=== PATIENT | male | born 1940 | race Caucasian/White ===

== ENCOUNTER 2020-01-14 07:55 | Day surgery (SDC) | payer MEDICARE ==
[2020-01-11 15:20] VITALS: BMI 32.1
[~2020-01-14 07:55] MED LIST: LACTATED RINGERS 1,000 ML IV SCH; LIDOCAINE 1% (10MG/ML) FOR IV START INTRADERMA PRN
[2020-01-14 08:28] VITALS: RESP 16; TEMP 98.6
[2020-01-14] MEDS ORDERED: LIDOCAINE 1% INJ 10MG/ML (20 ML MDV) ONE (09:05)
[2020-01-14] MEDS ORDERED: PROPOFOL 10 MG/ML 20 ML VIAL IV ONE (09:05)
--- NOTE | 2020-01-14 09:29 | P.PCN ---
Date of Procedure: 01/14/20 Procedure(s) Performed: BRIEF HISTORY: Patient is a 79-year-old pleasant white male scheduled for an elective colonoscopy as a part of evaluation of prior history of colon polyps. His last colonoscopy was 5 years ago. PROCEDURE PERFORMED: Colonoscopy with snare polypectomy. PREOPERATIVE DIAGNOSIS: History of colon polyps. IV sedation per Anesthesia. PROCEDURE: After informed consent was obtained, the patient, was brought into the endoscopy unit. IV sedation was administered by Anesthesia under continuous monitoring. Digital rectal examination was normal. Initially the Olympus CF-160 flexible video colonoscope was then inserted in the rectum, gradually advanced into the cecum without any difficulty. Careful examination was performed as the scope was gradually being withdrawn. Ileocecal valve was visualized and appeared normal. Prep was fair.. Mucosa of the cecum, ascending colon, transverse colon, appeared normal. In the hepatic flexure there was a 5 mm sessile polyp removed by snare polypectomy. Scattered left-sided diverticulosis seen. Rest of the descending colon, sigmoid colon, and rectum appeared normal. Retroflexion was performed in the rectum and monitor hemorrhoids were seen. The patient tolerated the procedure well. IMPRESSION: 5-6 mm hepatic flexure polyp status post polypectomy Scattered left-sided diverticula Small internal hemorrhoids RECOMMENDATIONS: Findings of this examination were discussed with the patient as well as his family. He was advised to follow with the biopsy results. He will continue with a high-fiber diet and take fiber supplements a regular basis..
[2020-01-14 09:51] VITALS: BP 149/74; PULSE 76
== END 2020-01-14 10:08 | disposition home or self-care (01) ==
LOC: ORWHC2ENDO 07:55
PROVIDERS: ATTEND Internal Medicine Gastroenterology
DX: Z12.11 Encounter for screening for malignant neoplasm of colon (principal); D12.3 Benign neoplasm of transverse colon; K57.30 Diverticulosis of large intestine without perforation or abscess without bleeding; K64.8 Other hemorrhoids; I25.10 Atherosclerotic heart disease of native coronary artery without angina pectoris; I10 Essential (primary) hypertension; E78.5 Hyperlipidemia, unspecified; I48.91 Unspecified atrial fibrillation; I49.3 Ventricular premature depolarization; N19 Unspecified kidney failure; M19.90 Unspecified osteoarthritis, unspecified site; H40.9 Unspecified glaucoma; K59.00 Constipation, unspecified; Z86.010 Personal history of colon polyps; Z79.899 Other long term (current) drug therapy; Z79.82 Long term (current) use of aspirin; Z79.891 Long term (current) use of opiate analgesic; Z97.2 Presence of dental prosthetic device (complete) (partial); Z99.2 Dependence on renal dialysis
CPT/HCPCS: 88305; 45385; J2001; J2704

== ENCOUNTER 2020-10-11 18:01 | Inpatient (IN) | payer MEDICARE ==
[2020-10-11] MEDS ORDERED: SODIUM CHLORIDE 0.9% 1,000 ML IV STA (18:12)
--- NOTE | 2020-10-11 18:18 | ED ---
General Adult HPI - General Chief complaint: Weakness Stated complaint: weakness Time Seen by Provider: 10/11/20 18:02 Source: patient, EMS, RN notes reviewed Mode of arrival: EMS Limitations: no limitations - History of Present Illness Initial comments: Patient is a pleasant 79-year-old male presenting to the emergency department with some generalized weakness. Onset of symptoms was a past 2 weeks or so. Patient has had several near falls. No isolated area of weakness. There was some question as far as possible confusion but patient states he does not feel confused. No head injury. Patient never had a full fall. No fevers. No chest pain or dyspnea. Patient does admit to having some epigastric discomfort. - Related Data Home Medications Medication Instructions Recorded Confirmed Aspirin EC [Ecotrin] 81 mg PO DAILY 05/01/15 10/11/20 Pantoprazole Sodium [Protonix] 40 mg PO BID 05/01/15 10/11/20 Cyclobenzaprine [Flexeril] 5 mg PO TID PRN 01/11/20 10/11/20 Montelukast [Singulair] 10 mg PO DAILY 01/11/20 10/11/20 Atorvastatin [Lipitor] 20 mg PO DAILY 10/11/20 10/11/20 Calcium Acetate 667 mg PO DAILY 10/11/20 10/11/20 Metoprolol Tartrate [Lopressor] 25 mg PO DAILY 10/11/20 10/11/20 Timolol 0.25% Ophth Soln [Timoptic 1 drop LEFT EYE DAILY 10/11/20 10/11/20 0.25% Ophth Soln] oxyCODONE HCL/ACETAMINOPHEN 1 tab PO TID PRN 10/11/20 10/11/20 [Percocet 7.5-325 mg] traZODone HCL 100 - 200 mg PO HS PRN 10/11/20 10/11/20 Allergies Allergy/AdvReac Type Severity Reaction Status Date / Time No Known Allergies Allergy Verified 01/14/20 08:23 Review of Systems ROS Statement: Those systems with pertinent positive or pertinent negative responses have been documented in the HPI. ROS Other: All systems not noted in ROS Statement are negative. Constitutional: Denies: fever Eyes: Denies: eye pain ENT: Denies: ear pain Respiratory: Denies: cough Cardiovascular: Denies: chest pain Endocrine: Denies: fatigue Gastrointestinal: Reports: as per HPI, abdominal pain. Denies: nausea, vomiting Genitourinary: Denies: dysuria Musculoskeletal: Denies: back pain Skin: Denies: rash Neurological: Reports: as per HPI. Denies: headache Past Medical History Past Medical History: Atrial Fibrillation, Eye Disorder, GERD/Reflux, Hyperlipidemia, Hypertension, Myocardial Infarction (IN), Osteoarthritis (OA), Renal Disease, Vascular Disorder Additional Past Medical History / Comment(s): Vtach with cardioversion, PVCs, paroxysmal AFib, pt states he was told by his physician that he had a mild IN 03/01/16, NEUROPATHY bilateral feet, MRSA with sepsis, CONSTIPATION, L eye GLAUCOMA, BACK PAIN, Chronic renal failure with AV fistula L arm-PT ON HEMO DIALYSIS FRIDAY ,FRIDAY & FRIDAY WITH SHUNT IN LEFT ARM, DJD. Last Myocardial Infarction Date:: 03/01/16 History of Any Multi-Drug Resistant Organisms: MRSA Date of last positivie culture/infection: 02/18/12 per past medical record/patient MDRO Source:: unknown Past Surgical History: Coronary Bypass/CABG, Heart Catheterization, Hernia Repair, Orthopedic Surgery Additional Past Surgical History / Comment(s): 2003 - vessel CABG, L ING HERNIA, AORTIC ANEURYSM repair, colonoscopy, benign polypectomy, cataract removal with lens implants bilaterally, L arm AV fistula. Past Anesthesia/Blood Transfusion Reactions: No Reported Reaction Past Psychological History: No Psychological Hx Reported Smoking Status: Current every day smoker - Past Family History Mother Family Medical History: No Reported History Additional Family Medical History / Comment(s): Mother lived to be 99yrs old. Father Family Medical History: Cancer Additional Family Medical History / Comment(s): OF COLON CANCER. General Exam Limitations: no limitations General appearance: alert, in no apparent distress Head exam: Present: atraumatic, normocephalic Eye exam: Present: normal appearance, PERRL, EOMI. Absent: nystagmus ENT exam: Present: normal oropharynx Neck exam: Present: normal inspection Respiratory exam: Present: normal lung sounds bilaterally Cardiovascular Exam: Present: regular rate, normal rhythm GI/Abdominal exam: Present: soft. Absent: tenderness Extremities exam: Present: normal inspection Neurological exam: Present: alert, oriented X3, CN II-XII intact Expanded Neurological exam: Present: protecting the airway Patient oriented to: Present: person, place, time Speech: Present: fluid speech Cranial nerves: EOM's Intact: Normal Sensory exam: Upper Extremity Light Touch: Normal, Lower Extremity Light Touch: Normal Motor strength exam: RUE: 5, LUE: 5, RLE: 3, LLE: 3 Eye Response: (4) open spontaneously Motor Response: (6) obeys commands Verbal Response: (5) oriented Psychiatric exam: Present: normal affect, normal mood Skin exam: Present: normal color Course Vital Signs 10/11/20 10/11/20 18:13 18:58 Temperature 100.0 F H Pulse Rate 62 71 Respiratory 18 18 Rate Blood Pressure 135/75 107/89 O2 Sat by Pulse 97 Oximetry EKG Findings - EKG Comments: EKG Findings:: A. fib with rate of 92. QRS 138. QT 400. QTc 494. Left axis. Right bundle branch block. Inferior Q waves. PVC present. No acute ST change. Medical Decision Making - Medical Decision Making Patient reevaluated and updated. Case was discussed with practitioner Dariana emerson covering for Dr. Man, who will admit covering for Dr. Gordon. - Lab Data Result diagrams: 10/11/20 18:24 10/11/20 18:24 Lab Results 10/11/20 10/11/20 10/11/20 Range/Units 18:24 18:24 18:24 WBC 11.3 H (3.8-10.6) k/uL RBC 3.72 L (4.30-5.90) m/uL Hgb 12.3 L (13.0-17.5) gm/dL Hct 36.9 L (39.0-53.0) % MCV 99.1 (80.0-100.0) fL MCH 32.9 (25.0-35.0) pg MCHC 33.2 (31.0-37.0) g/dL RDW 12.9 (11.5-15.5) % Plt Count 159 (150-450) k/uL MPV 8.6 Neutrophils % 90 % Lymphocytes % 3 % Monocytes % 4 % Eosinophils % 2 % Basophils % 1 % Neutrophils # 10.1 H (1.3-7.7) k/uL Lymphocytes # 0.4 L (1.0-4.8) k/uL Monocytes # 0.4 (0-1.0) k/uL Eosinophils # 0.2 (0-0.7) k/uL Basophils # 0.1 (0-0.2) k/uL PT 13.8 H (9.0-12.0) sec INR 1.4 H (<1.2) APTT 20.7 L (22.0-30.0) sec Sodium 132 L (137-145) mmol/L Potassium 3.8 (3.5-5.1) mmol/L Chloride 94 L (98-107) mmol/L Carbon Dioxide 29 (22-30) mmol/L Anion Gap 9 mmol/L BUN 42 H (9-20) mg/dL Creatinine 3.82 H (0.66-1.25) mg/dL Est GFR (CKD-EPI)AfAm 16 (>60 ml/min/1.73 sqM) Est GFR (CKD-EPI)NonAf 14 (>60 ml/min/1.73 sqM) Glucose 145 H (74-99) mg/dL Plasma Lactic Acid Kevin (0.7-2.0) mmol/L Calcium 8.7 (8.4-10.2) mg/dL Phosphorus 2.2 L (2.5-4.5) mg/dL Magnesium 1.5 L (1.6-2.3) mg/dL Total Bilirubin 1.3 (0.2-1.3) mg/dL AST 37 (17-59) U/L ALT 24 (4-49) U/L Alkaline Phosphatase 118 (38-126) U/L Creatine Kinase 25 L (55-170) U/L Troponin I (0.000-0.034) ng/mL Total Protein 6.8 (6.3-8.2) g/dL Albumin 2.9 L (3.5-5.0) g/dL Amylase 84 (30-110) U/L Lipase 99 (23-300) U/L TSH 0.470 (0.465-4.680) mIU/L Free T4 1.32 (0.78-2.19) ng/dL Free T3 pg/mL 3.1 (2.8-5.3) pg/ml Influenza Type A (PCR) (Not Detectd) Influenza Type B (PCR) (Not Detectd) RSV (PCR) (Not Detectd) SARS-CoV-2 (PCR) (Not Detectd) 10/11/20 10/11/20 10/11/20 Range/Units 18:24 18:24 18:24 WBC (3.8-10.6) k/uL RBC (4.30-5.90) m/uL Hgb (13.0-17.5) gm/dL Hct (39.0-53.0) % MCV (80.0-100.0) fL MCH (25.0-35.0) pg MCHC (31.0-37.0) g/dL RDW (11.5-15.5) % Plt Count (150-450) k/uL MPV Neutrophils % % Lymphocytes % % Monocytes % % Eosinophils % % Basophils % % Neutrophils # (1.3-7.7) k/uL Lymphocytes # (1.0-4.8) k/uL Monocytes # (0-1.0) k/uL Eosinophils # (0-0.7) k/uL Basophils # (0-0.2) k/uL PT (9.0-12.0) sec INR (<1.2) APTT (22.0-30.0) sec Sodium (137-145) mmol/L Potassium (3.5-5.1) mmol/L Chloride (98-107) mmol/L Carbon Dioxide (22-30) mmol/L Anion Gap mmol/L BUN (9-20) mg/dL Creatinine (0.66-1.25) mg/dL Est GFR (CKD-EPI)AfAm (>60 ml/min/1.73 sqM) Est GFR (CKD-EPI)NonAf (>60 ml/min/1.73 sqM) Glucose (74-99) mg/dL Plasma Lactic Acid Kevin 2.2 H* (0.7-2.0) mmol/L Calcium (8.4-10.2) mg/dL Phosphorus (2.5-4.5) mg/dL Magnesium (1.6-2.3) mg/dL Total Bilirubin (0.2-1.3) mg/dL AST (17-59) U/L ALT (4-49) U/L Alkaline Phosphatase (38-126) U/L Creatine Kinase (55-170) U/L Troponin I 0.054 H* (0.000-0.034) ng/mL Total Protein (6.3-8.2) g/dL Albumin (3.5-5.0) g/dL Amylase (30-110) U/L Lipase (23-300) U/L TSH (0.465-4.680) mIU/L Free T4 (0.78-2.19) ng/dL Free T3 pg/mL (2.8-5.3) pg/ml Influenza Type A (PCR) Not Detected (Not Detectd) Influenza Type B (PCR) Not Detected (Not Detectd) RSV (PCR) Not Detected (Not Detectd) SARS-CoV-2 (PCR) Not Detected (Not Detectd) - Radiology Data Radiology results: report reviewed (Computed tomography scan the brain shows no acute process. CT abdomen and pelvis shows renal atrophy. Gallbladder density.), image reviewed (Chest x-ray shows minimal atelectasis in the near infiltrate left lower lobe.) Disposition Clinical Impression: Fever, Gallstones, Pneumonia Disposition: ADMITTED IP TO THIS HOSP Is patient prescribed a controlled substance at d/c from ED?: No Referrals: Shaan Gordon III, MD [Primary Care Provider] - 1-2 days Decision Time: 20:22
[2020-10-11 18:42] LABS: Basophils # (A) 0.1 k/uL (0-0.2); Basophils % (A) 1 %; Eosinophils # (A) 0.2 k/uL (0-0.7); Eosinophils % (A) 2 %; HCT 36.9 % (39.0-53.0); HGB 12.3 gm/dL (13.0-17.5); Lymphocytes # (A) 0.4 k/uL (1.0-4.8); Lymphocytes % (A) 3 %; MCH 32.9 pg (25.0-35.0); MCHC 33.2 g/dL (31.0-37.0); MCV 99.1 fL (80.0-100.0); Mean Platelet Volume 8.6; Monocytes # (A) 0.4 k/uL (0-1.0); Monocytes % (A) 4 %; Neutrophils # (A) 10.1 k/uL (1.3-7.7); Neutrophils % (A) 90 %; Platelet Count 159 k/uL (150-450); RBC 3.72 m/uL (4.30-5.90); RDW 12.9 % (11.5-15.5); WBC 11.3 k/uL (3.8-10.6)
[2020-10-11] MEDS ORDERED: ACETAMINOPHEN TAB 500 MG TAB PO STA (18:50)
[2020-10-11 18:51] LABS: Albumin 2.9 g/dL (3.5-5.0); Calcium 8.7 mg/dL (8.4-10.2); Magnesium 1.5 mg/dL (1.6-2.3); Phosphorus 2.2 mg/dL (2.5-4.5); Potassium 3.8 mmol/L (3.5-5.1); Total Bilirubin 1.3 mg/dL (0.2-1.3); Total Protein 6.8 g/dL (6.3-8.2)
--- NOTE | 2020-10-11 19:06 | CT ---
EXAMINATION TYPE: CT abdomen pelvis wo con DATE OF EXAM: 10/11/2020 COMPARISON: 03/03/2012 HISTORY: Abdominal pain. CT DLP: 1230 mGycm Automated exposure control for dose reduction was used. Images obtained from the diaphragm to the floor the pelvis without contrast. There is some mild subsegmental atelectasis at the lung bases. Heart is enlarged. There is no pericar dial effusion. Stomach is intact. There is unusual calcified gallstone. Gallbladder has normal size. Spleen is intact. There is no pancreatic mass. The bile ducts are not dilated. Liver shows no focal d efect. There is no adrenal mass. There is symmetric renal atrophy. There is no hydronephrosis. There are sma ll multiple renal cortical cysts that measure up to 2 cm. There is no retroperitoneal adenopathy. Abd ominal aorta is atheromatous. Aortoiliac graft noted. There is no inguinal hernia. There is no free fluid in the pelvis. There are a few sigmoid diverticul a without diverticulitis. Appendix is not seen. There is no sign of thickened appendix. There is no m esenteric edema. There is no ascites or free air. There is no bowel obstruction. Lumbar vertebra have normal alignment. There is multilevel degenerative disc space narrowing. There i s no compression fracture. The bony pelvis is intact. The hip joints are intact. There is no evidence of a pelvic mass. IMPRESSION: Cardiomegaly. There is clearing of the pleural effusions and basilar pulmonary infiltrates compared t o old exam. There is renal atrophy that appears new compared to old exam. Elongated calcific density in the gallbladder consistent with unusual gallstone appears new compared to old exam. Atherosclerotic vascular disease.
[2020-10-11 19:07] LABS: T4, Free (Free Thyroxine) 1.32 ng/dL (0.78-2.19)
[2020-10-11 19:19] LABS: INR 1.4 (<1.2); Partial Thromboplastin Time 20.7 sec (22.0-30.0); Prothrombin Time 13.8 sec (9.0-12.0)
--- NOTE | 2020-10-11 19:20 | CT ---
EXAMINATION TYPE: CT brain wo con DATE OF EXAM: 10/11/2020 COMPARISON: 02/29/2012 HISTORY: Weakness. CT DLP: 1123 mGycm Automated exposure control for dose reduction was used. Images obtained of the brain with no contrast. There is cerebral cortical atrophy. There is no mass effect nor midline shift. There is no sign of in tracranial hemorrhage. The calvarium is intact. There is no evidence of cerebral edema. Skull base is intact. IMPRESSION: Mild atrophy. No acute intracranial abnormality. No change.
--- NOTE | 2020-10-11 19:21 | XR ---
EXAMINATION TYPE: XR chest 2V DATE OF EXAM: 10/11/2020 COMPARISON: 03/06/2016 HISTORY: Weakness TECHNIQUE: FINDINGS: There is some minimal linear infiltrate and atelectasis left lower lobe. Right lung is rela tively clear. There is right axillary pacemaker. There are sternal wires. Thoracic aorta is atheromat ous. There are no hilar masses. There is no heart failure. IMPRESSION: There is some minimal atelectasis and linear infiltrate left lower lobe that appears new compared to old exam. No heart failure.
[2020-10-11] MEDS ORDERED: PNEUMONIA PROTOCOL UTILIZED 1 EACH MISC PO PRN (20:24)
[2020-10-11] MEDS ORDERED: PIPERACILLIN-TAZOBACTAM 3.375 GM in SODIUM CHLORIDE 0.9% 100 ML IVPB STA (20:30)
[2020-10-11] MEDS ORDERED: AZITHROMYCIN 500 MG in SODIUM CHLORIDE 0.9% 250 ML IVPB STA (20:30)
--- NOTE | 2020-10-11 22:15 | US ---
EXAMINATION TYPE: US gallbladder DATE OF EXAM: 10/11/2020 COMPARISON: 02/29/2012 CLINICAL HISTORY: pain, fever. pain, fever. EXAM MEASUREMENTS: Liver Length: 16.7 cm Gallbladder Wall: 0.31 cm CBD: 0.53 cm Right Kidney: 10.9 x 5.2 x 5.7 cm Limited due to gas and patient body habitus. Pancreas: Limited visibility. Liver: Appears to have an increased echogenicity, slightly coarse. Gallbladder: Internal echoes seen, Irregularly-shaped hyperechoic area seen: 6.5 x 4.2 x 1.8 cm. Evidence for sonographic Tarango's sign: Yes CBD: Appears wnl. Right Kidney: Cortex appears thin. Anechoic areas seen. Largest measures: 2.8 x 2.9 x 2.4 cm. IMPRESSION: Irregular echogenicity in the gallbladder consistent with debris and gallstones. No dilat ed ducts. No discrete liver mass. Right renal cortical atrophy.
[2020-10-11] MEDS: SODIUM CHLORIDE 0.9% 1,000 ML IV SCH (23:01)
[2020-10-12] MEDS: SODIUM CHLORIDE 0.9% 1,000 ML IV SCH (03:20)
[2020-10-12] MEDS ORDERED: AZITHROMYCIN 500 MG TAB PO SCH (09:00)
--- NOTE | 2020-10-12 09:04 | XR ---
EXAMINATION TYPE: XR chest 2V DATE OF EXAM: 10/12/2020 COMPARISON: Chest x-ray 10/11/2020 HISTORY: Pneumonia TECHNIQUE: Frontal and lateral views of the chest are obtained on 3 images. FINDINGS: Patchy densities present within the bilateral lungs. Interstitium is increased. There is n o evident pneumothorax or pleural effusion. Patient is post median sternotomy, the heart is enlarged. Defibrillator is unchanged. IMPRESSION: Correlate for pulmonary venous hypertension and interstitial edema, pneumonia not exclud ed.
[2020-10-12] MEDS: PIPERACILLIN-TAZOBACTAM 3.375 GM in SODIUM CHLORIDE 0.9% 100 ML IVPB SCH ×2 (09:19→20:30)
[2020-10-12] MEDS ORDERED: SODIUM CHLORIDE 0.9% 1,000 ML IV SCH (09:30)
[2020-10-12] MEDS ORDERED: CYCLOBENZAPRINE 5 MG TAB PO PRN (10:06)
[2020-10-12] MEDS ORDERED: traZODone HCL 100 MG TAB PO PRN (10:06)
[2020-10-12] MEDS ORDERED: oxyCODONE-APAP 7.5-325MG 1 EACH TAB PO PRN (10:06)
--- NOTE | 2020-10-12 10:47 | P.NPCON ---
History of Present Illness - Reason for Consult end stage renal disease - History of Present Illness Reason for consultation: End-stage renal disease History of present illness: A patient is a 79-year-old male seen in renal consultation for end-stage renal disease. He is maintained on hemodialysis on Friday schedule. Patient runs a 3 hour treatment and refuses to increase his treatment time. He presented to the hospital with generalized weakness. Patient states he was unable to get up and felt as if he was going to fall. He denies chest pain or shortness of breath. Blood pressure stable. No fever or chills. He tested negative for coronavirus. No vomiting or diarrhea. He does complain of abdominal discomfort. He WAS also noted to have urinary retention of about 400 mL and a straight catheterization will be performed soon. CT of the abdomen and pelvis revealed cardiomegaly and improved effusions. Gallbladder ultrasound revealed debris and gallstones. Chest x-ray suggestive of vascular congestion. Vital signs are stable. General: The patient appeared well nourished and normally developed. HEENT: Head exam is unremarkable. Neck is without jugular venous distension. LUNGS: Breath sounds decreased. HEART: Rate and Rhythm are regular. ABDOMEN: Soft, nontender. EXTREMITITES: No edema. Past Medical History Past Medical History: Atrial Fibrillation, Eye Disorder, GERD/Reflux, Hyperlipidemia, Hypertension, Myocardial Infarction (IN), Osteoarthritis (OA), Renal Disease, Vascular Disorder Additional Past Medical History / Comment(s): Vtach with cardioversion, PVCs, paroxysmal AFib, pt states he was told by his physician that he had a mild IN 03/01/16, NEUROPATHY bilateral feet, MRSA with sepsis, CONSTIPATION, L eye GLAUCOMA, BACK PAIN, Chronic renal failure with AV fistula L arm-PT ON HEMODI ALYSIS FRIDAY ,FRIDAY & FRIDAY WITH SHUNT IN LEFT ARM, DJD. Last Myocardial Infarction Date:: 03/01/16 History of Any Multi-Drug Resistant Organisms: MRSA Date of last positivie culture/infection: 02/18/12 per past medical record/patient MDRO Source:: unknown Past Surgical History: Coronary Bypass/CABG, Heart Catheterization, Hernia Repair, Orthopedic Surgery Additional Past Surgical History / Comment(s): 2004 - vessel CABG, L ING HERNIA, AORTIC ANEURYSM repair, colonoscopy, benign polypectomy, cataract removal with lens implants bilaterally, L arm AV fistula. Past Anesthesia/Blood Transfusion Reactions: No Reported Reaction Past Psychological History: No Psychological Hx Reported Additional Psychological History / Comment(s): Pt has adult family members that live with him. He has a cane he uses occasionally. He drives. Smoking Status: Former smoker Past Alcohol Use History: Occasional Additional Past Alcohol Use History / Comment(s): used to SMOKE pipe about 2 1/2 times a day. STARTED SMOKING AGE 14. DRINKS BEERS on occasion but none for several months. Past Drug Use History: None Reported - Past Family History Mother Family Medical History: No Reported History Additional Family Medical History / Comment(s): Mother lived to be 99yrs old. Father Family Medical History: Cancer Additional Family Medical History / Comment(s): OF COLON CANCER. Medications and Allergies Home Medications Medication Instructions Recorded Confirmed Type Aspirin EC [Ecotrin] 81 mg PO DAILY 05/01/15 10/11/20 History Pantoprazole Sodium [Protonix] 40 mg PO BID 05/01/15 10/11/20 History Cyclobenzaprine [Flexeril] 5 mg PO TID PRN 01/11/20 10/11/20 History Montelukast [Singulair] 10 mg PO DAILY 01/11/20 10/11/20 History Atorvastatin [Lipitor] 20 mg PO DAILY 10/11/20 10/11/20 History Calcium Acetate 667 mg PO DAILY 10/11/20 10/11/20 History Metoprolol Tartrate [Lopressor] 25 mg PO DAILY 10/11/20 10/11/20 History Timolol 0.25% Ophth Soln [Timoptic 1 drop LEFT EYE DAILY 10/11/20 10/11/20 History 0.25% Ophth Soln] oxyCODONE HCL/ACETAMINOPHEN 1 tab PO TID PRN 10/11/20 10/11/20 History [Percocet 7.5-325 mg] traZODone HCL 100 - 200 mg PO HS PRN 10/11/20 10/11/20 History Allergies Allergy/AdvReac Type Severity Reaction Status Date / Time No Known Allergies Allergy Verified 01/14/20 08:23 Physical Exam Vitals: Vital Signs Temp Pulse Pulse Resp BP BP Pulse Ox 10/12/20 08:48 98.5 F 69 18 125/77 92 L 10/12/20 01:30 95 20 10/12/20 01:00 97.8 F 83 20 122/69 95 10/11/20 22:30 97.7 F 95 20 126/61 97 10/11/20 21:22 98.9 F 88 18 124/64 96 10/11/20 18:58 71 18 107/89 10/11/20 18:13 100.0 F H 62 18 135/75 97 Intake and Output 10/11/20 10/12/20 10/12/20 22:59 06:59 14:59 Output Total 10 Balance -10 Output: Urine 10 Other: Voiding Method Urinal Urinal # Voids 1 Weight 158.757 kg 158.757 kg Results - Lab Results Most recent lab results Calcium 8.7 mg/dL (8.4-10.2) 10/11/20 18:24 Phosphorus 2.2 mg/dL (2.5-4.5) L 10/11/20 18:24 Magnesium 1.5 mg/dL (1.6-2.3) L 10/11/20 18:24 10/11/20 18:24 10/11/20 18:24 Assessment and Plan Plan: Assessment: 1. End-stage renal disease maintained on hemodialysis on Friday schedule. Missed yesterday's treatment. 2. Urinary retention. 3. Possible pneumonia maintained on antibiotics. 4. Chronic kidney disease mineral bone disease maintained on PhosLo. 5. Gallstones. Surgery following. Plan: Hemodialysis today and again tomorrow. Decrease rate of normal saline to 50 mL an hour. Straight catheterization now. Monitor serial postvoid residuals. Add Flomax. Check UA and urine culture. Thank you for the consultation. I will continue to follow the patient with you during his hospital stay.
[2020-10-12] MEDS: PANTOPRAZOLE 40 MG TABLET PO SCH ×2 (11:42→20:30)
[2020-10-12] MEDS: CALCIUM ACETATE 667 MG TAB PO SCH (11:42)
[2020-10-12] MEDS: TAMSULOSIN 0.4 MG CAP.ER.24H PO SCH (11:46)
--- NOTE | 2020-10-12 12:51 | P.GSCN ---
History of Present Illness Consult date: 10/12/20 History of present illness: CHIEF COMPLAINT: Generalized weakness Reason for consult: Gallstones HISTORY OF PRESENT ILLNESS: This is a 79-year-old male with a known history of atrial fibrillation not on any anticoagulation, myocardial infarction, coronary artery disease with prior CABG, hyperlipidemia, hypertension, end-stage renal disease on hemodialysis, ventricle tachycardia requiring cardioversions in the past. Also has a history of abdominal aortic aneurysm repair and a left inguinal hernia repair. Patient presents to the emergency room due to generalized weakness for the last couple weeks. Patient also reports decreased appetite over the last 10 days and complains of epigastric abdominal pain. Patient did have a low-grade temp of 100 on admission with a white count of 11.3. He had a CAT scan of the abdomen and pelvis which shows an elongated calc ific density in the gallbladder consistent with unusual gallstone. And abdominal ultrasound shows irregular echogenicity in the gallbladder consistent with debris and gallstones. No dilated ducts. No discrete liver mass. Right renal cortical atrophy. Patient denies any nausea or vomiting. Denies any bowel changes. PAST MEDICAL HISTORY: See list. PAST SURGICAL HISTORY: See list. MEDICATIONS: See list. ALLERGIES: See list. SOCIAL HISTORY: No illicit drug use. REVIEW OF SYSTEMS: CONSTITUTIONAL: Denies fever or chills. HEENT: Denies blurred vision, vision changes, or eye pain. Denies hemoptysis ENDOCRINE: Denies heat or cold intolerance. CARDIOVASCULAR: Denies chest pain or pressure. RESPIRATORY: No shortness of breath. GASTROINTESTINAL: Denies nausea or vomiting. NEURO: Denies history of seizures. PSYCH: No depression or suicidal ideation HEMATOLOGIC: Denies bleeding disorders. LYMPHATIC: The patient denies any lumps and bumps around the neck. GENITOURINARY: Denies any blood in urine or increased urinary frequency. MUSCULOSKELETAL: Denies myalgias. Denies joint swelling. Denies decreased range of motion beyond patients baseline. SKIN: Denies pruitis. Denies rash. PHYSICAL EXAM: VITAL SIGNS: Reviewed GENERAL: Well-developed in no acute distress. HEENT: No sclera icterus. Extraocular movements grossly intact. Moist buccal mucosa. Head is atraumatic, normocephalic. Hears conversational speech. No nasal drainage. NECK: Supple without lymphadenopathy. CHEST: Non-labored respirations and equal bilateral excursions. CARDIOVASCULAR: Palpable 2+ radial pulses. ABDOMEN: Soft. Nondistended. Epigastric tenderness with palpation. Patient does have a large old midline abdominal scar MUSCULOSKELETAL: No clubbing or cyanosis. NEUROLOGIC: No focal or lateralizing signs. Cranial nerves II through XII grossly intact. PSYCH: Appropriate affect. Alert and oriented to person, place and time. SKIN: Well perfused. Good skin turgor. LABORATORY DATA: WBC 11.3 hemoglobin 12.3 platelets 159 INR 1.4 sodium 132 creatinine 3.82 lactic acid 2.2 down to 1.4 Magnesium 1.5 LFTs are normal Troponin 0.054 Lipase 99 IMAGING: abdominal ultrasound shows irregular echogenicity in the gallbladder consistent with debris and gallstones. No dilated ducts. No discrete liver mass. Right renal cortical atrophy. Computed tomography scan abdomen and pelvis without contrast shows cardiomegaly. There is clearing of the pleural effusions and basilar pulmonary infiltrates compared to old exam. There is renal atrophy that appears new compared to old exam. Elongated calcific density in the gallbladder consistent with unusual gallstone appears new compared to old exam. Atherosclerotic vascular disease Computed tomography scan of brain mild atrophy. No acute intracranial abnormality. No change Chest x-ray there is some minimal atelectasis and linear infiltrate left lower lobe that appears new compared to old exam. No heart failure. Chest x-ray for today shows correlate for pulmonary venous hypertension and interstitial edema, pneumonia not excluded ASSESSMENT: 1. Epigastric abdominal pain with decreased appetite. Abdominal ultrasound revealing gallbladder debris and gallstones 2. Generalized weakness 3. Possible pneumonia 4. History of myocardial infarction, coronary artery disease with CABG 5. History of abdominal aortic aneurysm repair 6. History of atrial fibrillation not on any anticoagulation 7. Hypertension 8. History of ventricle tachycardia requiring cardioversion 9. End-stage renal disease on hemodialysis. Followed by nephrology PLAN: -No surgical intervention planned at this time -Recommend conservative management -Consult cardiology for cardiac clearance -Continue IV antibiotics Thank you for this consultation Physician Truck Driver Salesperson note has been reviewed by physician. Signing provider agrees with the documented findings, assessment, and plan of care. Past Medical History Past Medical History: Atrial Fibrillation, Eye Disorder, GERD/Reflux, Hyperlipidemia, Hypertension, Myocardial Infarction (SC), Osteoarthritis (OA), Renal Disease, Vascular Disorder Additional Past Medical History / Comment(s): Vtach with cardioversion, PVCs, paroxysmal AFib, pt states he was told by his physician that he had a mild SC 03/01/16, NEUROPATHY bilateral feet, MRSA with sepsis, CONSTIPATION, L eye GLAUCOMA, BACK PAIN, Chronic renal failure with AV fistula L arm-PT ON HEMODIALYSIS FRIDAY ,FRIDAY & FRIDAY WITH SHUNT IN LEFT ARM, DJD. Last Myocardial Infarction Date:: 03/01/16 History of Any Multi-Drug Resistant Organisms: MRSA Year Discovered:: 02/18/12 per past medical record/patient MDRO Source:: unknown Past Surgical History: Coronary Bypass/CABG, Heart Catheterization, Hernia Repair, Orthopedic Surgery Additional Past Surgical History / Comment(s): 2003 - vessel CABG, L ING HE RNIA, AORTIC ANEURYSM repair, colonoscopy, benign polypectomy, cataract removal with lens implants bilaterally, L arm AV fistula. Past Anesthesia/Blood Transfusion Reactions: No Reported Reaction Past Psychological History: No Psychological Hx Reported Additional Psychological History / Comment(s): Pt has adult family members that live with him. He has a cane he uses occasionally. He drives. Smoking Status: Former smoker Past Alcohol Use History: Occasional Additional Past Alcohol Use History / Comment(s): used to SMOKE pipe about 2 1/2 times a day. STARTED SMOKING AGE 14. DRINKS BEERS on occasion but none for several months. Past Drug Use History: None Reported - Past Family History Mother Family Medical History: No Reported History Additional Family Medical History / Comment(s): Mother lived to be 99yrs old. Father Family Medical History: Cancer Additional Family Medical History / Comment(s): OF COLON CANCER. Medications and Allergies Home Medications Medication Instructions Recorded Confirmed Type Aspirin EC [Ecotrin] 81 mg PO DAILY 05/01/15 10/11/20 History Pantoprazole Sodium [Protonix] 40 mg PO BID 05/01/15 10/11/20 History Cyclobenzaprine [Flexeril] 5 mg PO TID PRN 01/11/20 10/11/20 History Montelukast [Singulair] 10 mg PO DAILY 01/11/20 10/11/20 History Atorvastatin [Lipitor] 20 mg PO DAILY 10/11/20 10/11/20 History Calcium Acetate 667 mg PO DAILY 10/11/20 10/11/20 History Metoprolol Tartrate [Lopressor] 25 mg PO DAILY 10/11/20 10/11/20 History Timolol 0.25% Ophth Soln [Timoptic 1 drop LEFT EYE DAILY 10/11/20 10/11/20 History 0.25% Ophth Soln] oxyCODONE HCL/ACETAMINOPHEN 1 tab PO TID PRN 10/11/20 10/11/20 History [Percocet 7.5-325 mg] traZODone HCL 100 - 200 mg PO HS PRN 10/11/20 10/11/20 History Allergies Allergy/AdvReac Type Severity Reaction Status Date / Time No Known Allergies Allergy Verified 01/14/20 08:23 Surgical - Exam Vital Signs Temp Pulse Resp BP Pulse Ox 100.0 F H 62 18 135/75 97 10/11/20 18:13 10/11/20 18:13 10/11/20 18:13 10/11/20 18:13 10/11/20 18:13 Results - Labs 10/11/20 18:24 10/11/20 18:24 Abnormal Lab Results - Last 24 Hours (Table) 10/11/20 10/11/20 10/11/20 Range/Units 18:24 18:24 18:24 WBC 11.3 H (3.8-10.6) k/uL RBC 3.72 L (4.30-5.90) m/uL Hgb 12.3 L (13.0-17.5) gm/dL Hct 36.9 L (39.0-53.0) % Neutrophils # 10.1 H (1.3-7.7) k/uL Lymphocytes # 0.4 L (1.0-4.8) k/uL PT 13.8 H (9.0-12.0) sec INR 1.4 H (<1.2) APTT 20.7 L (22.0-30.0) sec Sodium 132 L (137-145) mmol/L Chloride 94 L (98-107) mmol/L BUN 42 H (9-20) mg/dL Creatinine 3.82 H (0.66-1.25) mg/dL Glucose 145 H (74-99) mg/dL Plasma Lactic Acid Kevin (0.7-2.0) mmol/L Phosphorus 2.2 L (2.5-4.5) mg/dL Magnesium 1.5 L (1.6-2.3) mg/dL Creatine Kinase 25 L (55-170) U/L Troponin I (0.000-0.034) ng/mL Albumin 2.9 L (3.5-5.0) g/dL 10/11/20 10/11/20 Range/Units 18:24 18:24 WBC (3.8-10.6) k/uL RBC (4.30-5.90) m/uL Hgb (13.0-17.5) gm/dL Hct (39.0-53.0) % Neutrophils # (1.3-7.7) k/uL Lymphocytes # (1.0-4.8) k/uL PT (9.0-12.0) sec INR (<1.2) APTT (22.0-30.0) sec Sodium (137-145) mmol/L Chloride (98-107) mmol/L BUN (9-20) mg/dL Creatinine (0.66-1.25) mg/dL Glucose (74-99) mg/dL Plasma Lactic Acid Kevin 2.2 H* (0.7-2.0) mmol/L Phosphorus (2.5-4.5) mg/dL Magnesium (1.6-2.3) mg/dL Creatine Kinase (55-170) U/L Troponin I 0.054 H* (0.000-0.034) ng/mL Albumin (3.5-5.0) g/dL Diabetes panel 10/11/20 Range/Units 18:24 Sodium 132 L (137-145) mmol/L Potassium 3.8 (3.5-5.1) mmol/L Chloride 94 L (98-107) mmol/L Carbon Dioxide 29 (22-30) mmol/L BUN 42 H (9-20) mg/dL Creatinine 3.82 H (0.66-1.25) mg/dL Glucose 145 H (74-99) mg/dL Calcium 8.7 (8.4-10.2) mg/dL AST 37 (17-59) U/L ALT 24 (4-49) U/L Alkaline Phosphatase 118 (38-126) U/L Total Protein 6.8 (6.3-8.2) g/dL Albumin 2.9 L (3.5-5.0) g/dL Thyroid panel 10/11/20 Range/Units 18:24 TSH 0.470 (0.465-4.680) mIU/L Calcium panel 10/11/20 Range/Units 18:24 Calcium 8.7 (8.4-10.2) mg/dL Phosphorus 2.2 L (2.5-4.5) mg/dL Albumin 2.9 L (3.5-5.0) g/dL Pituitary panel 10/11/20 Range/Units 18:24 Sodium 132 L (137-145) mmol/L Potassium 3.8 (3.5-5.1) mmol/L Chloride 94 L (98-107) mmol/L Carbon Dioxide 29 (22-30) mmol/L BUN 42 H (9-20) mg/dL Creatinine 3.82 H (0.66-1.25) mg/dL Glucose 145 H (74-99) mg/dL Calcium 8.7 (8.4-10.2) mg/dL TSH 0.470 (0.465-4.680) mIU/L Adrenal panel 10/11/20 Range/Units 18:24 Sodium 132 L (137-145) mmol/L Potassium 3.8 (3.5-5.1) mmol/L Chloride 94 L (98-107) mmol/L Carbon Dioxide 29 (22-30) mmol/L BUN 42 H (9-20) mg/dL Creatinine 3.82 H (0.66-1.25) mg/dL Glucose 145 H (74-99) mg/dL Calcium 8.7 (8.4-10.2) mg/dL Total Bilirubin 1.3 (0.2-1.3) mg/dL AST 37 (17-59) U/L ALT 24 (4-49) U/L Alkaline Phosphatase 118 (38-126) U/L Total Protein 6.8 (6.3-8.2) g/dL Albumin 2.9 L (3.5-5.0) g/dL
--- NOTE | 2020-10-12 14:05 | P.CRDCN ---
History of Present Illness History of present illness: HISTORY OF PRESENTING ILLNESS This is a pleasant 79-year-old male past medical history significant for ischemic cardiomyopathy s/p single chamber [facility] [place] ICD, coronary artery disease s/p bypass grafting 2V LYLES-LAD; SVG-RCA 2003, AAA repair 2008, hypertension, dyslipidemia, ventricular tachycardia, chronic systolic heart failure, former nicotine dependence and end stage renal disease on HD. He last followed in the office with Dr. Ramos 2018. We have been asked to see in co nsultation for pre-operative evaluation. He states he came to the hospital with symptoms of progressively worsening weakness over the past 1-week along with some epigastric and left upper quadrant abdominal pain. He was found to have gallbladder debris and gallstones on diagnostic imaging. He has been seen in evaluation by Dr. Delaney who recommend conservative management with IV antibiotics at this time no plans for surgical intervention. He is seen and examined sitting up in bed undergoing dialysis. He denies chest pain, shortness of breath, dizziness or palpitations. EKG on arrival revealed atrial fibrillation with controlled ventricular rates. This is a new diagnosis for this patient. He denies prior history of this and we show no documentation in the past. Chest xray on admission reveals minimal atelectasis and a linear infiltrate at the left lower lobe. Repeat today reveals pulmonary venous hypertension and interstitial edema. Gallbladder ultrasound reveals irregular echogenicity in the gallbladder consistent with debris and gallstones with no dilated ducts. Laboratory data reviewed, WBC 11.3, hemoglobin 12.3, platelets 159, sodium 132, potassium 3.8, creatinine 3.82, lactic acid on admission 2. 2 repeat after hydration 1.4, magnesium 1.5, troponin 0.054, TSH 0.470. Current daily cardiac medications include aspirin 81 mg daily, atorvastatin 20 mg daily and Lopressor 25 mg daily. Most recent echocardiogram in 2016 reveals impaired LV systolic function with ejection fraction 40% with mild mitral regurgitation. REVIEW OF SYSTEMS At the time of my exam: CONSTITUTIONAL: Denies fever or chills. CARDIOVASCULAR: Denies chest pain, shortness of breath, orthopnea, PND or palpitations. RESPIRATORY: Denies cough. GASTROINTESTINAL: Denies abdominal pain, diarrhea, constipation, nausea or vomiting. MUSCULOSKELETAL: Denies myalgias. NEUROLOGIC: Denies numbness, tingling, headacbe or weakness. ENDOCRINE: Denies fatigue, weight change, polydipsia or polyurina. GENITOURINARY: Denies burning, hematuria or urgency with micturation. HEMATOLOGIC: Denies history of anemia or bleeding. PHYSICAL EXAMINATION Blood pressure 141/67 heart rate 78 afebrile and maintaining oxygen saturation on room air. CONSTITUTIONAL: No apparent distress. HEENT: Head is normocephalic. Pupils are equal, round. Sclerae anicteric. Mucous membranes of the mouth are moist. No JVD. No carotid bruit. CHEST EXAMINATION: Soft expiratory wheezes throughout. No rales or rhonchi. No chest wall tenderness is noted on palpation or with deep breathing. HEART EXAMINATION: Irregular rate and rhythm. S1, S2 heard. No murmurs, gallops or rub. Distant heart sounds. ABDOMEN: Soft, mild discomfort noted in the epigastric region. Positive bowel sounds. EXTREMITIES: 2+ peripheral pulses, no lower extremity edema and no calf tenderness. NEUROLOGIC EXAMINATION: Patient is awake, alert and oriented x3. ASSESSMENT Generalized weakness New onset paroxysmal atrial fibrillation with controlled ventricular rates Chronic systolic heart failure Ischemic cardiomyopathy s/p AICD History of ventricular tachycardia Coronary artery disease s/p bypass grafting End stage renal disease on dialysis Hypertension Lactic acidosis Troponin leak secondary to chronic kidney disease History of AAA repair Hypomagnesemia PLAN Obtain 2D echocardiogram and doppler study to assess cardiac structure and function. Interrogate device to assess afib burden and length of afib. Pt will require termite treater helper anti-coagulation for thromboembolic protection. Eliquis prescription has been sent to the pharmacy. Aspirin can be discontinued as his heart disease is currently stable. Further recommendations to follow based on clinical course. Thank you kindly for this consultation. Nurse Practitioner note has been reviewed, I agree with a documented findings and plan of care. Patient was seen and examined. Past Medical History Past Medical History: Atrial Fibrillation, Eye Disorder, GERD/Reflux, Hyperlipidemia, Hypertension, Myocardial Infarction ([place]), Osteoarthritis (OA), Renal Disease, Vascular Disorder Additional Past Medical History / Comment(s): Vtach with cardioversion, PVCs, paroxysmal AFib, pt states he was told by his physician that he had a mild [place] 03/01/16, NEUROPATHY bilateral feet, MRSA with sepsis, CONSTIPATION, L eye GLAUCO MA, BACK PAIN, Chronic renal failure with AV fistula L arm-PT ON HEMODIALYSIS FRIDAY ,FRIDAY & FRIDAY WITH SHUNT IN LEFT ARM, DJD. Last Myocardial Infarction Date:: 03/01/16 History of Any Multi-Drug Resistant Organisms: MRSA Date of last positivie culture/infection: 02/18/12 per past medical record/patient MDRO Source:: unknown Past Surgical History: Coronary Bypass/CABG, Heart Catheterization, Hernia Repair, Orthopedic Surgery Additional Past Surgical History / Comment(s): 2004 - vessel CABG, L ING HERNIA, AORTIC ANEURYSM repair, colonoscopy, benign polypectomy, cataract removal with lens implants bilaterally, L arm AV fistula. Past Anesthesia/Blood Transfusion Reactions: No Reported Reaction Past Psychological History: No Psychological Hx Reported Additional Psychological History / Comment(s): Pt has adult family members that live with him. He has a cane he uses occasionally. He drives. Smoking Status: Former smoker Past Alcohol Use History: Occasional Additional Past Alcohol Use History / Comment(s): used to SMOKE pipe about 2 1/2 times a day. STARTED SMOKING AGE 14. DRINKS BEERS on occasion but none for several months. Past Drug Use History: None Reported - Past Family History Mother Family Medical History: No Reported History Additional Family Medical History / Comment(s): Mother lived to be 99yrs old. Father Family Medical History: Cancer Additional Family Medical History / Comment(s): OF COLON CANCER. Medications and Allergies Home Medications Medication Instructions Recorded Confirmed Type Aspirin EC [Ecotrin] 81 mg PO DAILY 05/01/15 10/11/20 History Pantoprazole Sodium [Protonix] 40 mg PO BID 05/01/15 10/11/20 History Cyclobenzaprine [Flexeril] 5 mg PO TID PRN 01/11/20 10/11/20 History Montelukast [Singulair] 10 mg PO DAILY 01/11/20 10/11/20 History Atorvastatin [Lipitor] 20 mg PO DAILY 10/11/20 10/11/20 History Calcium Acetate 667 mg PO DAILY 10/11/20 10/11/20 History Metoprolol Tartrate [Lopressor] 25 mg PO DAILY 10/11/20 10/11/20 History Timolol 0.25% Ophth Soln [Timoptic 1 drop LEFT EYE DAILY 10/11/20 10/11/20 History 0.25% Ophth Soln] oxyCODONE HCL/ACETAMINOPHEN 1 tab PO TID PRN 10/11/20 10/11/20 History [Percocet 7.5-325 mg] traZODone HCL 100 - 200 mg PO HS PRN 10/11/20 10/11/20 History Allergies Allergy/AdvReac Type Severity Reaction Status Date / Time No Known Allergies Allergy Verified 01/14/20 08:23 Physical Exam Vitals: Vital Signs Temp Pulse Pulse Resp BP BP Pulse Ox 10/12/20 13:37 97.3 F L 78 18 141/67 10/12/20 08:48 98.5 F 69 18 125/77 92 L 10/12/20 01:30 95 20 10/12/20 01:00 97.8 F 83 20 122/69 95 10/11/20 22:30 97.7 F 95 20 126/61 97 10/11/20 21:22 98.9 F 88 18 124/64 96 10/11/20 18:58 71 18 107/89 10/11/20 18:13 100.0 F H 62 18 135/75 97 Intake and Output 10/11/20 10/12/20 10/12/20 22:59 06:59 14:59 Output Total 10 1000 Balance -10 -1000 Output: Urine 10 Hemodialysis 1000 Other: Voiding Method Urinal Urinal # Voids 1 Weight 158.757 kg 158.757 kg Results 10/11/20 18:24 10/11/20 18:24 Cardiac Enzymes 10/11/20 10/11/20 Range/Units 18:24 18:24 AST 37 (17-59) U/L Troponin I 0.054 H* (0.000-0.034) ng/mL Coagulation 10/11/20 Range/Units 18:24 PT 13.8 H (9.0-12.0) sec APTT 20.7 L (22.0-30.0) sec CBC 10/11/20 Range/Units 18:24 WBC 11.3 H (3.8-10.6) k/uL RBC 3.72 L (4.30-5.90) m/uL Hgb 12.3 L (13.0-17.5) gm/dL Hct 36.9 L (39.0-53.0) % Plt Count 159 (150-450) k/uL Comprehensive Metabolic Panel 10/11/20 Range/Units 18:24 Sodium 132 L (137-145) mmol/L Potassium 3.8 (3.5-5.1) mmol/L Chloride 94 L (98-107) mmol/L Carbon Dioxide 29 (22-30) mmol/L BUN 42 H (9-20) mg/dL Creatinine 3.82 H (0.66-1.25) mg/dL Glucose 145 H (74-99) mg/dL Calcium 8.7 (8.4-10.2) mg/dL AST 37 (17-59) U/L ALT 24 (4-49) U/L Alkaline Phosphatase 118 (38-126) U/L Total Protein 6.8 (6.3-8.2) g/dL Albumin 2.9 L (3.5-5.0) g/dL Current Medications Generic Name Dose Route Start Last Admin Trade Name Freq PRN Reason Stop Dose Admin Aspirin 81 mg 10/13/20 09:00 Aspirin 81 Mg PO DAILY [facility] Atorvastatin Calcium 20 mg 10/13/20 09:00 Atorvastatin 20 Mg Tab PO DAILY JAQUELINE Calcium Acetate 667 mg 10/12/20 10:15 10/12/20 11:42 Calcium Acetate 667 Mg Tab PO 667 mg DAILY JAQUELINE Administration Cyclobenzaprine HCl 5 mg 10/12/20 10:06 Cyclobenzaprine 5 Mg Tab PO TID PRN Pain Piperacillin Sod/Tazobactam 100 mls @ 25 mls/hr 10/12/20 09:00 10/12/20 09:19 Sod 3.375 gm/ Sodium Chloride IVPB 10/19/20 23:59 25 mls/hr Q12HR JAQUELINE Administration Sodium Chloride 1,000 mls @ 50 mls/hr 10/12/20 09:30 10/12/20 11:43 Saline 0.9% IV 50 mls/hr .Q20H JAQUELINE Administration Metoprolol Tartrate 25 mg 10/13/20 09:00 Metoprolol Tartrate 25 Mg Tab PO DAILY JAQUELINE Miscellaneous Information 1 each 10/11/20 20:24 Pneumonia Protocol Utilized 1 Each Misc PO ONCE PRN Per Protocol Oxycodone/Acetaminophen 1 each 10/12/20 10:06 Oxycodone-Apap 7.5-325mg 1 Each Tab PO TID PRN Pain Pantoprazole Sodium 40 mg 10/12/20 10:15 10/12/20 11:42 Pantoprazole 40 Mg Tablet PO 40 mg BID JAQUELINE Administration Polyethylene Glycol 17 gm 10/12/20 21:00 Polyethylene Glycol 3350 17 Gm Powd.Pack PO HS JAQUELINE Tamsulosin HCl 0.4 mg 10/12/20 11:00 10/12/20 11:46 Tamsulosin 0.4 Mg Cap.Er.24h PO 0.4 mg [id number] JAQUELINE Administration Timolol Maleate 1 drops 10/13/20 09:00 Timolol 0.25% Ophth Drops 5 Ml Btl LEFT EYE DAILY [facility] Trazodone HCl 100 mg 10/12/20 10:06 Trazodone Hcl 100 Mg Tab PO HS PRN Insomnia Intake and Output 10/11/20 10/12/20 10/12/20 22:59 06:59 14:59 Output Total 10 1000 Balance -10 -1000 Output: Urine 10 Hemodialysis 1000 Other: Voiding Method Urinal Urinal # Voids 1 Weight 158.757 kg 158.757 kg 10/11/20 18:24 10/11/20 18:24
--- NOTE | 2020-10-12 14:10 | P.HPIM ---
History of Present Illness Patient given with compensative generalized weakness and fever. Generalized weakness has been going on for about 2 weeks. Patient had a chest x-ray which showed pulmonary edema but patient was believed to have pneumonia and was sta rted on antibiotic Zosyn and azithromycin. Patient doesn't have any clinical signs or symptoms of pneumonia although patient is found to have gallstones. Patient does have tenderness in the epigastric area mostly rather right upper quadrant area. Patient is a poor historian. Patient was complaining of nausea patient was also company of her constipation. Patient doesn't have any dilated bile ducts. Patient does have history of end-stage renal disease hemodialysis dependent. Patient does have history of atrial fibrillation for which patient is an approximately one at a lower dose. Review of Systems REVIEW OF SYSTEMS: CONSTITUTIONAL: As mentioned in HPI HEENT: No recent visual problems or hearing problems. Denied any sore throat. CARDIOVASCULAR: No chest pain, orthopnea, PND, no palpitations, no syncope. PULMONARY: No shortness of breath, no cough, no hemoptysis. GASTROINTESTINAL: As mentioned in HPI NEUROLOGICAL: No headaches, no weakness, no numbness. HEMATOLOGICAL: Denies any bleeding or petechiae. GENITOURINARY: Denies any burning micturition, frequency, or urgency. MUSCULOSKELETAL/RHEUMATOLOGICAL: Denies any joint pain, swelling, or any muscle pain. ENDOCRINE: Denies any polyuria or polydipsia. The rest of the 14-point review of systems is negative. Past Medical History Past Medical History: Atrial Fibrillation, Eye Disorder, GERD/Reflux, Hyperlipidemia, Hypertension, Myocardial Infarction (GA), Osteoarthritis (OA), Renal Disease, Vascular Disorder Additional Past Medical History / Comment(s): Vtach with cardioversion, PVCs, paroxysmal AFib, pt states he was told by his physician that he had a mild GA 03/01/16, NEUROPATHY bilateral feet, MRSA with sepsis, CONSTIPATION, L eye GLAUCOMA, BACK PAIN, Chronic renal failure with AV fistula L arm-PT ON HEMODIALYSIS FRIDAY ,FRIDAY & FRIDAY WITH SHUNT IN LEFT ARM, DJD. Last Myocardial Infarction Date:: 03/01/16 History of Any Multi-Drug Resistant Organisms: MRSA Date of last positivie culture/infection: 02/18/12 per past medical re cord/patient MDRO Source:: unknown Past Surgical History: Coronary Bypass/CABG, Heart Catheterization, Hernia Repair, Orthopedic Surgery Additional Past Surgical History / Comment(s): 2003 - vessel CABG, L ING HERNIA, AORTIC ANEURYSM repair, colonoscopy, benign polypectomy, cataract removal with lens implants bilaterally, L arm AV fistula. Past Anesthesia/Blood Transfusion Reactions: No Reported Reaction Past Psychological History: No Psychological Hx Reported Additional Psychological History / Comment(s): Pt has adult family members that live with him. He has a cane he uses occasionally. He drives. Smoking Status: Former smoker Past Alcohol Use History: Occasional Additional Past Alcohol Use History / Comment(s): used to SMOKE pipe about 2 1/2 times a day. STARTED SMOKING AGE 14. DRINKS BEERS on occasion but none for several months. Past Drug Use History: None Reported - Past Family History Mother Family Medical History: No Reported History Additional Family Medical History / Comment(s): Mother lived to be 99yrs old. Father Family Medical History: Cancer Additional Family Medical History / Comment(s): OF COLON CANCER. Medications and Allergies Home Medications Medication Instructions Recorded Confirmed Type Aspirin EC [Ecotrin] 81 mg PO DAILY 05/01/15 10/11/20 History Pantoprazole Sodium [Protonix] 40 mg PO BID 05/01/15 10/11/20 History Cyclobenzaprine [Flexeril] 5 mg PO TID PRN 01/11/20 10/11/20 History Montelukast [Singulair] 10 mg PO DAILY 01/11/20 10/11/20 History Atorvastatin [Lipitor] 20 mg PO DAILY 10/11/20 10/11/20 History Calcium Acetate 667 mg PO DAILY 10/11/20 10/11/20 History Metoprolol Tartrate [Lopressor] 25 mg PO DAILY 10/11/20 10/11/20 History Timolol 0.25% Ophth Soln [Timoptic 1 drop LEFT EYE DAILY 10/11/20 10/11/20 History 0.25% Ophth Soln] oxyCODONE HCL/ACETAMINOPHEN 1 tab PO TID PRN 10/11/20 10/11/20 History [Percocet 7.5-325 mg] traZODone HCL 100 - 200 mg PO HS PRN 10/11/20 10/11/20 History Allergies Allergy/AdvReac Type Severity Reaction Status Date / Time No Known Allergies Allergy Verified 01/14/20 08:23 Physical Exam Vitals: Vital Signs Temp Pulse Pulse Resp BP BP Pulse Ox 10/12/20 13:37 97.3 F L 78 18 141/67 10/12/20 08:48 98.5 F 69 18 125/77 92 L 10/12/20 01:30 95 20 10/12/20 01:00 97.8 F 83 20 122/69 95 10/11/20 22:30 97.7 F 95 20 126/61 97 10/11/20 21:22 98.9 F 88 18 124/64 96 10/11/20 18:58 71 18 107/89 10/11/20 18:13 100.0 F H 62 18 135/75 97 Intake and Output 10/11/20 10/12/20 10/12/20 22:59 06:59 14:59 Output Total 10 1000 Balance -10 -1000 Output: Urine 10 Hemodialysis 1000 Other: Voiding Method Urinal Urinal # Voids 1 Weight 158.757 kg 158.757 kg PHYSICAL EXAMINATION: GENERAL: The patient is alert and oriented x3, not in any acute distress. Obese HEENT: Pupils are round and equally reacting to light. EOMI. No scleral icterus. No conjunctival pallor. Normocephalic, atraumatic. No pharyngeal erythema. No thyromegaly. CARDIOVASCULAR: S1 and S2 present. No murmurs, rubs, or gallops. PULMONARY: Chest is clear to auscultation, no wheezing or crackles. ABDOMEN: Soft, mild epigastric abdominal tenderness nondistended, normoactive bowel sounds. No palpable organomegaly. MUSCULOSKELETAL: No joint swelling or deformity. EXTREMITIES: No cyanosis, clubbing, or pedal edema. NEUROLOGICAL: Gross neurological examination did not reveal any focal deficits. SKIN: No rashes. Results CBC & Chem 7: 10/11/20 18:24 10/11/20 18:24 Labs: Abnormal Lab Results - Last 24 Hours (Table) 10/11/20 10/11/20 10/11/20 Range/Units 18:24 18:24 18:24 WBC 11.3 H (3.8-10.6) k/uL RBC 3.72 L (4.30-5.90) m/uL Hgb 12.3 L (13.0-17.5) gm/dL Hct 36.9 L (39.0-53.0) % Neutrophils # 10.1 H (1.3-7.7) k/uL Lymphocytes # 0.4 L (1.0-4.8) k/uL PT 13.8 H (9.0-12.0) sec INR 1.4 H (<1.2) APTT 20.7 L (22.0-30.0) sec Sodium 132 L (137-145) mmol/L Chloride 94 L (98-107) mmol/L BUN 42 H (9-20) mg/dL Creatinine 3.82 H (0.66-1.25) mg/dL Glucose 145 H (74-99) mg/dL Plasma Lactic Acid Kevin (0.7-2.0) mmol/L Phosphorus 2.2 L (2.5-4.5) mg/dL Magnesium 1.5 L (1.6-2.3) mg/dL Creatine Kinase 25 L (55-170) U/L Troponin I (0.000-0.034) ng/mL Albumin 2.9 L (3.5-5.0) g/dL 10/11/20 10/11/20 Range/Units 18:24 18:24 WBC (3.8-10.6) k/uL RBC (4.30-5.90) m/uL Hgb (13.0-17.5) gm/dL Hct (39.0-53.0) % Neutrophils # (1.3-7.7) k/uL Lymphocytes # (1.0-4.8) k/uL PT (9.0-12.0) sec INR (<1.2) APTT (22.0-30.0) sec Sodium (137-145) mmol/L Chloride (98-107) mmol/L BUN (9-20) mg/dL Creatinine (0.66-1.25) mg/dL Glucose (74-99) mg/dL Plasma Lactic Acid Kevin 2.2 H* (0.7-2.0) mmol/L Phosphorus (2.5-4.5) mg/dL Magnesium (1.6-2.3) mg/dL Creatine Kinase (55-170) U/L Troponin I 0.054 H* (0.000-0.034) ng/mL Albumin (3.5-5.0) g/dL Thrombosis Risk Factor Assmnt - Choose All That Apply Each Risk Factor Represents 3 Points: Age 75 years or older Thrombosis Risk Factor Assessment Total Risk Factor Score: 3 Thrombosis Risk Factor Assessment Level: Moderate Risk Assessment and Plan Plan: -Fever, sepsis: Patient clinically and radiologically doesn't appear to have any pneumonia. Patient fever and leukocytosis probably due to intra-abdominal source that is cholelithiasis and possibility of cholecystitis. The surgery was consulted. -Abdominal pain: Possibly secondary to cholelithiasis or cholecystitis can use Zosyn. There may be a competent of peptic ulcer disease or gastroesophageal reflux disease, patient will be started on Protonix as well -Constipation for which we'll use lactulose -Mildly elevated troponin secondary to end-stage renal disease -End-stage renal disease disease, dialysis dependent patient will undergo he modialysis as scheduled and nephrology evaluated the patient -Pulmonary edema and volume overload secondary to an seasonal disease and patient will undergo hemodialysis possibly today and tomorrow as well. -Atrial fibrillation presently rate controlled continue with Eliquis -Gastroesophageal reflux disease -Hyperlipidemia -Hypertension -Peripheral vascular disease
[2020-10-12 17:35] LABS: Amorphous Sediment,Urine Rare /hpf; Appearance,Urine Clear (Clear); Bacteria,Urine Rare /hpf; Bilirubin,Urine Negative (Negative); Blood,Urine Negative (Negative); Color,Urine Yellow; Glucose,Urine (UA) Negative (Negative); Ketones,Urine Negative (Negative); Leukocyte Esterase,Urine Negative (Negative); Nitrite,Urine Negative (Negative); PH, Urine 5.5 (5.0-8.0); Protein,Urine 1+ (Negative); RBC,Urine 3 /hpf (0-5); Specific Gravity,Urine 1.017 (1.001-1.035); WBC,Urine 1 /hpf (0-5)
[2020-10-12] MEDS: APIXABAN 2.5 MG TABLET PO SCH (20:30)
[2020-10-12] MEDS: polyethylene glycoL 3350 17 GM POWD.PACK PO SCH (20:30)
[2020-10-13] MEDS ORDERED: ASPIRIN 81 MG PO SCH (09:00)
[2020-10-13] MEDS: TAMSULOSIN 0.4 MG CAP.ER.24H PO SCH (09:16)
[2020-10-13] MEDS: METOPROLOL TARTRATE 25 MG TAB PO SCH (09:16)
[2020-10-13] MEDS: ATORVASTATIN 20 MG TAB PO SCH (09:16)
[2020-10-13] MEDS: PANTOPRAZOLE 40 MG TABLET PO SCH ×2 (09:16→19:58)
[2020-10-13] MEDS: APIXABAN 2.5 MG TABLET PO SCH (09:16)
[2020-10-13] MEDS: PIPERACILLIN-TAZOBACTAM 3.375 GM in SODIUM CHLORIDE 0.9% 100 ML IVPB SCH ×2 (09:17→19:59)
[2020-10-13] MEDS: TIMOLOL 0.25% OPHTH DROPS 5 ML BTL LEFT EYE SCH (09:34)
--- NOTE | 2020-10-13 10:18 | ECHOF ---
Referral Reason:pre op MEASUREMENTS -------- HEIGHT: 188.0 cm WEIGHT: 158.8 kg BP: 125/77 RVIDd: 3.2 cm (< 3.3) IVSd: 1.7 cm (0.6 - 1.1) LVIDd: 5.0 cm (3.9 - 5.3) LVPWd: 1.5 cm (0.6 - 1.1) IVSs: 2.1 cm LVIDs: 3.5 cm LVPWs: 2.2 cm LAESV Index (A-L): 35.56 ml/m Ao Diam: 3.6 cm (2.0 - 3.7) AV Cusp: 1.9 cm (1.5 - 2.6) MV EXCURSION: 18.742 mm (> 18.000) MV EF SLOPE: 107 mm/s (70 - 150) EPSS: 0.8 cm RAP: 5.00 mmHg RVSP: 32.63 mmHg FINDINGS -------- Atrial fibrillation. Pacerwire seen in RV and RA. This was a technically difficult study with suboptimal views. The left ventricular size is normal. There is moderate concentric left ventricular hypertrophy. O verall left ventricular systolic function is mild-moderately impaired with, an EF between 40 - 45 %. The right ventricle is normal in size. LA is moderately dilated 34-39 ml/m2 The right atrium was not well visualized. xx ml of Lumason was utilized for enhancement of images. Interatrial and interventricular septum intact. There is mild aortic valve sclerosis. There is no evidence of aortic regurgitation. There is no e vidence of aortic stenosis. Mild mitral annular calcification present. Coxo-iv-vrnevufd mitral regurgitation is present. Mild tricuspid regurgitation present. Right ventricular systolic pressure is normal at < 35 mmHg. The right ventricular systolic pressure, as measured by Doppler, is 32.63mmHg. The pulmonic valve was not well visualized. There is no pulmonic regurgitation present. The aortic root size is normal. IVC Not well visulized. There is no pericardial effusion. CONCLUSIONS -------- 1. Pacerwire seen in RV and RA. 2. This was a technically difficult study with suboptimal views. 3. There is moderate concentric left ventricular hypertrophy. 4. Overall left ventricular systolic function is mild-moderately impaired with, an EF between 40 - 45 %. 5. LA is moderately dilated 34-39 ml/m2 6. There is mild aortic valve sclerosis. 7. Igiq-yn-uhjkhaux mitral regurgitation is present. 8. Mild tricuspid regurgitation present. 9. There is no pericardial effusion. [employer]UM[employer] DEVELOPER: Kristy Lazo RDCS
--- NOTE | 2020-10-13 10:21 | P.PN ---
Subjective HISTORY OF PRESENTING ILLNESS This is a pleasant 79-year-old male past medical history significant for ischemic cardiomyopathy s/p single chamber [facility] ICD, coronary artery disease s/p bypass grafting 2V LYLES-LAD; SVG-RCA 2003, AAA repair 2008, hypertension, dyslipidemia, ventricular tachycardia, chronic systolic heart failure, former nicotine dependence and end stage renal disease on HD. He last followed in the office with Dr. Ramos 2018. We have been asked to see in consultation for pre-operative evaluation. He states he came to the hospital with symptoms of progressively worsening weakness over the past 1-week along with some epigastric and left upper quadrant abdominal pain. He was found to have gallbladder debris and gallstones on diagnostic imaging. He has been seen in evaluation by Dr. Delaney who recommend conservative management with IV antibiotics at this time no plans for surgical intervention. He is seen and examined sitting up in bed undergoing dialysis. He denies chest pain, shortness of breath, dizziness or palpitations. EKG on arrival revealed atrial fibrillation with controlled ventricular rates. This is a new diagnosis for this patient. He denies prior history of this and we show no documentation in the past. Chest xray on admission reveals minimal atelectasis and a linear infiltrate at the left lower lobe. Repeat today reveals pulmonary venous hypertension and interstitial edema. Gallbladder ultrasound reveals irregular echogenicity in the gallbladder consistent with debris and gallstones with no dilated ducts. Laboratory data reviewed, WBC 11.3, hemoglobin 12.3, platelets 159, sodium 132, potassium 3.8, creatinine 3.82, lactic acid on admission 2. 2 repeat after hydration 1.4, magnesium 1.5, troponin 0.054, TSH 0.470. Current daily cardiac medications include aspirin 81 mg daily, atorvastatin 20 mg daily and Lopressor 25 mg daily. Most recent echocardiogram in 2016 reveals impaired LV systolic function with ejection fraction 40% with mild mitral regurgitation. 10/13/2020 Patient seen and examined resting comfortably in bed with family at the bedside. Discussed the cost of Eliquis with the patient and $94 a month and the patient would prefer a cheaper medication. We will initiate warfarin today. He denies symptoms of chest pain, shortness of breath, dizziness or palpitations. Blood pressure 139/74 heart rate 78 afebrile maintaining oxygen saturation on room a ir. Echocardiogram has been obtained and will be reviewed. PHYSICAL EXAMINATION CONSTITUTIONAL: No apparent distress. HEENT: Head is normocephalic. Pupils are equal, round. Sclerae anicteric. Mucous membranes of the mouth are moist. No JVD. No carotid bruit. CHEST EXAMINATION: Soft expiratory wheezes throughout. No rales or rhonchi. No chest wall tenderness is noted on palpation or with deep breathing. HEART EXAMINATION: Irregular rate and rhythm. S1, S2 heard. No murmurs, gallops or rub. Distant heart sounds. EXTREMITIES: 2+ peripheral pulses, no lower extremity edema and no calf tende rness. ASSESSMENT Generalized weakness New onset paroxysmal atrial fibrillation with controlled ventricular rates Chronic systolic heart failure, not on WILFRID/ARB due to renal function. Ischemic cardiomyopathy s/p AICD History of ventricular tachycardia Coronary artery disease s/p bypass grafting End stage renal disease on dialysis Hypertension Lactic acidosis Troponin leak secondary to chronic kidney disease History of AAA repair Hypomagnesemia PLAN Discontinue eliquis due to monthly cost, initiate warfarin for thromboembolic protection. Continue beta blockers for rate control. No plans for surgical intervention at this time according to consult note. If he should require surgery down the line his warfarin will have to be held until INR is acceptable for the performing surgeon. He is a high risk surgical candidate. Clinically stable from a cardiac perspective on current medical regimen. Nurse Practitioner note has been reviewed, I agree with a documented findings and plan of care. Patient was seen and examined. Objective - Vital Signs Vital signs: Vital Signs Temp 97.6 F 10/13/20 07:30 Pulse 78 10/13/20 07:30 Resp 16 10/13/20 07:30 BP 139/74 10/13/20 07:30 Pulse Ox 98 10/13/20 07:30 Intake & Output 10/12/20 10/13/20 10/13/20 18:59 06:59 18:59 Intake Total 100 118 Output Total 1520 Balance -1420 118 Intake: Oral 100 118 Output: Urine 520 Hemodialysis 1000 Other: Voiding Method Urinal Urinal Urinal # Voids 2 # Bowel Movements 1 - Labs CBC & Chem 7: 10/11/20 18:24 10/11/20 18:24 Labs: Abnormal Lab Results - Last 24 Hours (Table) 10/12/20 Range/Units 17:00 Urine Protein 1+ H (Negative) Amorphous Sediment Rare H (None) /hpf Urine Bacteria Rare H (None) /hpf Microbiology - Last 24 Hours (Table) 10/11/20 21:35 Blood Culture - Preliminary Blood No Growth after 24 hours
[2020-10-13 11:04] LABS: HCT 31.7 % (39.6-50.0); HGB 10.1 g/dL (13.0-17.0); MCH 32.6 pg (27.0-32.0); MCHC 31.9 g/dL (32.0-37.0); MCV 102.3 fL (80.0-97.0); Mean Platelet Volume 11.1 fL (9.5-12.2); Platelet Count 153 X 10*3/uL (140-440); RDW 13.2 % (11.5-14.5); WBC 11.49 X 10*3/uL (4.50-10.00)
[2020-10-13 11:19] LABS: INR 1.4 (<1.2); Prothrombin Time 13.8 sec (9.0-12.0)
--- NOTE | 2020-10-13 12:46 | P.PN ---
Subjective Progress Note Date: 10/13/20 CHIEF COMPLAINT: Generalized weakness HISTORY OF PRESENT ILLNESS: Surgical service is following regards to patient's abdominal pain and gallstones. Patient reports that he still has no appetite. He is complaining of epigastric pain. Denies any history of peptic ulcer disease. Denies any nausea or vomiting. He has been having bowel movements. Patient evaluated by cardiology and they did start patient on Coumadin for his atrial fibrillation. Afebrile. White count is about the same from 11.3-11.49. Hemoglobin did drop from 12.3-10.1 PHYSICAL EXAM: VITAL SIGNS: Reviewed. GENERAL: Well-developed in no acute distress. HEENT: No sclera icterus. Extraocular movements grossly intact. Moist buccal mucosa. Head is atraumatic, normocephalic. ABDOMEN: Soft. Nondistended. Epigastric tenderness with palpation NEUROLOGIC: Alert and oriented. Cranial nerves II through XII grossly intact. ASSESSMENT: 1. Epigastric abdominal pain with decreased appetite. Abdominal ultrasound revealing gallbladder debris and gallstones 2. Generalized weakness 3. History of myocardial infarction, coronary artery disease with CABG 4. History of abdominal aortic aneurysm repair 5. History of atrial fibrillation 6. Hypertension 7. History of ventricle tachycardia requiring cardioversion 8. End-stage renal disease on hemodialysis. Followed by nephrology PLAN: -Patient may benefit from an upper endoscopy regarding his epigastric pain -No surgical intervention planned at this time for the gallbladder -Recommend conservative management -Continue IV antibiotics -Continue Protonix Physician Scalder note has been reviewed by physician. Signing provider agrees with the documented findings, assessment, and plan of care. Objective - Vital Signs Vital signs: Vital Signs Temp 97.6 F 10/13/20 07:30 Pulse 78 10/13/20 07:30 Resp 16 10/13/20 07:30 BP 139/74 10/13/20 07:30 Pulse Ox 98 10/13/20 07:30 Intake & Output 10/12/20 10/13/20 10/13/20 18:59 06:59 18:59 Intake Total 100 118 Output Total 1520 Balance -1420 118 Intake: Oral 100 118 Output: Urine 520 Hemodialysis 1000 Other: Voiding Method Urinal Urinal Urinal # Voids 2 # Bowel Movements 1 - Labs CBC & Chem 7: 10/13/20 05:11 10/11/20 18:24 Labs: Abnormal Lab Results - Last 24 Hours (Table) 10/12/20 10/13/20 10/13/20 Range/Units 17:00 05:11 10:28 WBC 11.49 H (4.50-10.00) X 10*3/uL RBC 3.10 L (4.40-5.60) X 10*6/uL Hgb 10.1 L (13.0-17.0) g/dL Hct 31.7 L (39.6-50.0) % MCV 102.3 H (80.0-97.0) fL MCH 32.6 H (27.0-32.0) pg MCHC 31.9 L (32.0-37.0) g/dL PT 13.8 H (9.0-12.0) sec INR 1.4 H (<1.2) Urine Protein 1+ H (Negative) Amorphous Sediment Rare H (None) /hpf Urine Bacteria Rare H (None) /hpf Microbiology - Last 24 Hours (Table) 10/11/20 21:35 Blood Culture - Preliminary Blood No Growth after 24 hours
[2020-10-13 13:54] LABS: African American GFR (CKD) 25.7 (60.0-200.0); Anion Gap 11.1 mmol/L (4.00-12.00); BUN/Creat Ratio 13.08 Ratio (12.00-20.00); Calcium 8.5 mg/dL (8.7-10.3); Carbon Dioxide 25.9 mmol/L (21.6-31.8); Non-African American GFR(CKD) 22.1 (60.0-200.0); Potassium 3.9 mmol/L (3.5-5.5)
--- NOTE | 2020-10-13 14:15 | P.PN ---
Subjective Patient is seen in follow-up for end-stage renal disease. He is maintained on hemodialysis on Friday schedule. Abdominal pain is improved. No chest pain or shortness of breath. Blood pressure is stable. No problems with dialysis. Vital signs are stable. General: The patient appeared well nourished and normally developed. HEENT: Head exam is unremarkable. Neck is without jugular venous distension. LUNGS: Breath sounds decreased. HEART: Rate and Rhythm are regular. ABDOMEN: Soft, obese. Mild tenderness. EXTREMITITES: No edema. Objective - Vital Signs Vital signs: Vital Signs Temp 97.6 F 10/13/20 07:30 Pulse 78 10/13/20 07:30 Resp 16 10/13/20 07:30 BP 139/74 10/13/20 07:30 Pulse Ox 98 10/13/20 07:30 Intake & Output 10/12/20 10/13/20 10/13/20 18:59 06:59 18:59 Intake Total 100 118 Output Total 1520 Balance -1420 118 Intake: Oral 100 118 Output: Urine 520 Hemodialysis 1000 Other: Voiding Method Urinal Urinal Urinal # Voids 2 # Bowel Movements 1 - Labs CBC & Chem 7: 10/13/20 05:11 10/13/20 05:11 Labs: Abnormal Lab Results - Last 24 Hours (Table) 10/12/20 10/13/20 10/13/20 Range/Units 17:00 05:11 05:11 WBC 11.49 H (4.50-10.00) X 10*3/uL RBC 3.10 L (4.40-5.60) X 10*6/uL Hgb 10.1 L (13.0-17.0) g/dL Hct 31.7 L (39.6-50.0) % MCV 102.3 H (80.0-97.0) fL MCH 32.6 H (27.0-32.0) pg MCHC 31.9 L (32.0-37.0) g/dL PT (9.0-12.0) sec INR (<1.2) BUN 34.0 H (9.0-27.0) mg/dL Creatinine 2.6 H (0.6-1.5) mg/dL Est GFR (CKD-EPI)AfAm 25.7 L (60.0-200.0) Est GFR (CKD-EPI)NonAf 22.1 L (60.0-200.0) Glucose 117 H (70-110) mg/dL Calcium 8.5 L (8.7-10.3) mg/dL Urine Protein 1+ H (Negative) Amorphous Sediment Rare H (None) /hpf Urine Bacteria Rare H (None) /hpf 10/13/20 Range/Units 10:28 WBC (4.50-10.00) X 10*3/uL RBC (4.40-5.60) X 10*6/uL Hgb (13.0-17.0) g/dL Hct (39.6-50.0) % MCV (80.0-97.0) fL MCH (27.0-32.0) pg MCHC (32.0-37.0) g/dL PT 13.8 H (9.0-12.0) sec INR 1.4 H (<1.2) BUN (9.0-27.0) mg/dL Creatinine (0.6-1.5) mg/dL Est GFR (CKD-EPI)AfAm (60.0-200.0) Est GFR (CKD-EPI)NonAf (60.0-200.0) Glucose (70-110) mg/dL Calcium (8.7-10.3) mg/dL Urine Protein (Negative) Amorphous Sediment (None) /hpf Urine Bacteria (None) /hpf Microbiology - Last 24 Hours (Table) 10/11/20 21:35 Blood Culture - Preliminary Blood No Growth after 24 hours Assessment and Plan Plan: Assessment: 1. End-stage renal disease maintained on hemodialysis on Friday schedule. Missed one treatment prior to admission. 2. Urinary retention. Underwent straight catheterization. Flomax added. 3. Possible pneumonia maintained on antibiotics. 4. Chronic kidney disease mineral bone disease maintained on PhosLo. 5. Gallstones. Surgery following. No surgeries planned at this time. 6. Chronic systolic CHF with ejection fraction of 40-45% with mild to moderate mitral regurgitation. 7. New onset A. fib. Cardiology following. On Lopressor and anticoagulation. Plan: Hemodialysis today. Hep-Lock IV fluids. Continue to monitor serial postvoid residuals.
[2020-10-13] MEDS ORDERED: WARFARIN 5 MG TAB PO SCH (18:00)
[2020-10-13] MEDS: polyethylene glycoL 3350 17 GM POWD.PACK PO SCH ×2 (19:59→20:12)
[2020-10-14 06:28] LABS: INR 1.5 (<1.2)
[2020-10-14 08:18] VITALS: RESP 16
[2020-10-14] MEDS: TAMSULOSIN 0.4 MG CAP.ER.24H PO SCH (08:31)
[2020-10-14] MEDS: CALCIUM ACETATE 667 MG TAB PO SCH (08:31)
[2020-10-14] MEDS: PANTOPRAZOLE 40 MG TABLET PO SCH (08:32)
[2020-10-14] MEDS: PIPERACILLIN-TAZOBACTAM 3.375 GM in SODIUM CHLORIDE 0.9% 100 ML IVPB SCH (08:32)
[2020-10-14] MEDS: ATORVASTATIN 20 MG TAB PO SCH (08:32)
[2020-10-14] MEDS: METOPROLOL TARTRATE 25 MG TAB PO SCH (08:32)
[2020-10-14] MEDS: TIMOLOL 0.25% OPHTH DROPS 5 ML BTL LEFT EYE SCH (09:30)
--- NOTE | 2020-10-14 13:47 | P.PN ---
Subjective Progress Note Date: 10/13/20 Principal diagnosis: Sepsis; possibly related to pneumonia versus cholecystitis End-stage renal disease/hemodialysis Pulmonary edema/volume overload Atrial fibrillation Patient given with compensative generalized weakness and fever. Generalized weakness has been going on for about 2 weeks. Patient had a chest x-ray which showed pulmonary edema but patient was believed to have pneumonia and was started on antibiotic Zosyn and azithromycin. Patient doesn't have any clinical signs or symptoms of pneumonia although patient is found to have gallstones. Patient does have tenderness in the epigastric area mostly rather right upper quadrant area. Patient is a poor historian. Patient was complaining of nausea patient was also company of her constipation. Patient doesn't have any dilated bile ducts. Patient does have history of end-stage renal disease hemodialysis dependent. Patient does have history of atrial fibrillation for which patient is an approximately one at a lower dose. Objective - Vital Signs Vital signs: Vital Signs Temp 97.6 F 10/13/20 07:30 Pulse 78 10/13/20 07:30 Resp 16 10/13/20 07:30 BP 139/74 10/13/20 07:30 Pulse Ox 98 10/13/20 07:30 Intake & Output 10/12/20 10/13/20 10/13/20 18:59 06:59 18:59 Intake Total 100 118 Output Total 1520 Balance -1420 118 Intake: Oral 100 118 Output: Urine 520 Hemodialysis 1000 Other: Voiding Method Urinal Urinal Urinal # Voids 2 # Bowel Movements 1 - Exam GENERAL: The patient is alert and oriented x3, not in any acute distress. Obese HEENT: Pupils are round and equally reacting to light. EOMI. No scleral icterus. No conjunctival pallor. Normocephalic, atraumatic. No pharyngeal erythema. No thyromegaly. CARDIOVASCULAR: S1 and S2 present. No murmurs, rubs, or gallops. PULMONARY: Chest is clear to auscultation, no wheezing or crackles. ABDOMEN: Soft, mild epigastric abdominal tenderness nondistended, normoactive bowel sounds. No palpable organomegaly. MUSCULOSKELETAL: No joint swelling or deformity. EXTREMITIES: No cyanosis, clubbing, or pedal edema. NEUROLOGICAL: Gross neurological examination did not reveal any focal deficits. SKIN: No rashes. - Labs CBC & Chem 7: 10/13/20 05:11 10/13/20 05:11 Labs: Abnormal Lab Results - Last 24 Hours (Table) 10/12/20 10/13/20 10/13/20 Range/Units 17:00 05:11 10:28 WBC 11.49 H (4.50-10.00) X 10*3/uL RBC 3.10 L (4.40-5.60) X 10*6/uL Hgb 10.1 L (13.0-17.0) g/dL Hct 31.7 L (39.6-50.0) % MCV 102.3 H (80.0-97.0) fL MCH 32.6 H (27.0-32.0) pg MCHC 31.9 L (32.0-37.0) g/dL PT 13.8 H (9.0-12.0) sec INR 1.4 H (<1.2) Urine Protein 1+ H (Negative) Amorphous Sediment Rare H (None) /hpf Urine Bacteria Rare H (None) /hpf Microbiology - Last 24 Hours (Table) 10/11/20 21:35 Blood Culture - Preliminary Blood No Growth after 24 hours Assessment and Plan Assessment: -Fever, sepsis: Patient clinically and radiologically doesn't appear to have any pneumonia. Patient fever and leukocytosis probably due to intra-abdominal amy rce that is cholelithiasis and possibility of cholecystitis. The surgery was consulted. -Abdominal pain: Possibly secondary to cholelithiasis or cholecystitis can use Zosyn. There may be a competent of peptic ulcer disease or gastroesophageal reflux disease, patient will be started on Protonix as well -Constipation for which we'll use lactulose -Mildly elevated troponin secondary to end-stage renal disease -End-stage renal disease disease, dialysis dependent patient will undergo hemodialysis as scheduled and nephrology evaluated the patient -Pulmonary edema and volume overload secondary to an seasonal disease and patient will undergo hemodialysis possibly today and tomorrow as well. -Atrial fibrillation presently rate controlled continue with Eliquis -Gastroesophageal reflux disease -Hyperlipidemia -Hypertension -Peripheral vascular disease
[2020-10-14 13:57] LABS: Basophils # (A) 0.1 k/uL (0-0.2); Basophils % (A) 1 %; Eosinophils # (A) 0.3 k/uL (0-0.7); Eosinophils % (A) 2 %; Hypochromasia Slight; Lymphocytes # (A) 0.7 k/uL (1.0-4.8); Lymphocytes % (A) 6 %; MCH 32.3 pg (25.0-35.0); MCHC 31.5 g/dL (31.0-37.0); MCV 102.4 fL (80.0-100.0); Macrocytosis Slight; Mean Platelet Volume 9.2; Monocytes # (A) 0.5 k/uL (0-1.0); Monocytes % (A) 5 %; Neutrophils # (A) 9.2 k/uL (1.3-7.7); Neutrophils % (A) 84 %; Platelet Count 168 k/uL (150-450); RBC 3.42 m/uL (4.30-5.90); RDW 13.1 % (11.5-15.5); WBC 10.9 k/uL (3.8-10.6)
[2020-10-14 14:02] LABS: African American GFR (CKD) 24 (>60 ml/min/1.73 sqM); Anion Gap 10 mmol/L; Blood Urea Nitrogen 29 mg/dL (9-20); Calcium 8.8 mg/dL (8.4-10.2); Carbon Dioxide 27 mmol/L (22-30); Chloride 100 mmol/L (98-107); Glucose 129 mg/dL (74-99); Non-African American GFR(CKD) 21 (>60 ml/min/1.73 sqM); Potassium 3.6 mmol/L (3.5-5.1); Sodium 137 mmol/L (137-145)
[2020-10-14 14:54] VITALS: BP 108/61; PULSE 91; TEMP 97.5
--- NOTE | 2020-10-14 15:00 | P.PN ---
Subjective Progress Note Date: 10/14/20 Follow-up for ESRD. Objective - Vital Signs Vital signs: Vital Signs Temp 97.5 F L 10/14/20 13:20 Pulse 91 10/14/20 13:20 Resp 16 10/14/20 13:20 BP 108/61 10/14/20 13:20 Pulse Ox 98 10/14/20 13:20 Intake & Output 10/13/20 10/14/20 10/14/20 18:59 06:59 18:59 Intake Total 718 100 Output Total 1000 Balance -282 100 Intake: Intake, IV Titration 100 Amount Piperacillin-Tazobactam 3 100 .375 gm In Sodium Chloride 0.9% 100 ml @ 25 mls/hr IVPB Q12HR [facility] Rx #:[id number] Oral 718 Output: Hemodialysis 1000 Other: Voiding Method Urinal Urinal Urinal # Voids 2 3 # Bowel Movements 1 1 - Exam No acute distress S1-S2 heard Lungs clear No edema - Labs CBC & Chem 7: 10/14/20 05:53 10/14/20 05:53 Labs: Abnormal Lab Results - Last 24 Hours (Table) 10/14/20 10/14/20 10/14/20 Range/Units 05:53 05:53 05:53 WBC 10.9 H (3.8-10.6) k/uL RBC 3.42 L (4.30-5.90) m/uL Hgb 11.0 L (13.0-17.5) gm/dL Hct 35.0 L (39.0-53.0) % MCV 102.4 H (80.0-100.0) fL Neutrophils # 9.2 H (1.3-7.7) k/uL Lymphocytes # 0.7 L (1.0-4.8) k/uL PT 15.0 H (9.0-12.0) sec INR 1.5 H (<1.2) BUN 29 H (9-20) mg/dL Creatinine 2.71 H (0.66-1.25) mg/dL Glucose 129 H (74-99) mg/dL Microbiology - Last 24 Hours (Table) 10/11/20 21:35 Blood Culture - Preliminary Blood No Growth after 48 hours Assessment and Plan Assessment: #1 ESRD, MWF #2 urinary retention requiring straight cath currently on Flomax #3 possible pneumonia on antibiotics #4 anemia with chronic kidney disease #5 metabolic bone disease 6 hypertension with chronic kidney disease Plan: #1 hemodialysis MWF schedule. #2 ESRD medications
--- NOTE | 2020-10-14 18:24 | P.PN ---
Subjective Progress Note Date: 10/14/20 CHIEF COMPLAINT: Epigastric pain HISTORY OF PRESENT ILLNESS: The patient is a 79 year old male who reports developing epigastric pain 5 days ago. He presented with weakness and low appetite. Today he is tolerating some diet. He was newly diagnosed with atrial fibrillation with rapid ventricular response. REVIEW OF ORGAN SYSTEMS: No nausea or vomiting. No fevers or chills. End-stage renal disease on dialysis. Atrial fibrillation with history of CABG. History of aortic aneurysm. PHYSICAL EXAM: VITALS: Reviewed CONSTITUTIONAL: Well developed and in no acute distress. EYES: Conjuctivae without sclera icterus. Extraocular movements grossly intact. HEAD, EARS, NOSE, THROAT: Moist buccal mucosa. Head is atraumatic, normocephalic. Hears conversational speech. RESPIRATORY: Non-labored respirations and equal bilateral excursions. No gross wheezes. CARDIOVASCULAR: Irregular rate and rhythm Palpable 2+ radial pulses. ABDOMEN: No peritonitis NEUROLOGIC: Cranial nerves II through XII grossly intact. No focal or lateralizing signs. PSYCH: Alert to person, place and time. SKIN: Well perfused. Good skin turgor. CLINCAL LABS: Reviewed. WBC down from 11.4-10.9. Creatinine elevated at 2.6- 2.7. STUDIES: US gallbladder independently reviewed with amorphic gallstones. No gallbladder wall thickening over 4 mm identified. This is my independent interpretation. ASSESSMENT: 1. Epigastric pain 2. Gallstones 3. End-stage renal disease on dialysis 4. History of CABG with atrial fibrillation 5. History of aortic aneurysm. PLAN: 1. On review, findings of gallstones were described. Gallstone diet reviewed with him and family at bedside. 2. Follow up outpatient. Objective - Vital Signs Vital signs: Vital Signs Temp 97.5 F L 10/14/20 13:20 Pulse 91 10/14/20 13:20 Resp 16 10/14/20 13:20 BP 108/61 10/14/20 13:20 Pulse Ox 98 10/14/20 13:20 Intake & Output 10/13/20 10/14/20 10/14/20 18:59 06:59 18:59 Intake Total 718 100 Output Total 1000 Balance -282 100 Intake: Intake, IV Titration 100 Amount Piperacillin-Tazobactam 3 100 .375 gm In Sodium Chloride 0.9% 100 ml @ 25 mls/hr IVPB Q12HR [facility] Rx #:[id number] Oral 718 Output: Hemodialysis 1000 Other: Voiding Method Urinal Urinal Urinal # Voids 2 3 # Bowel Movements 1 1 - Labs CBC & Chem 7: 10/14/20 05:53 10/14/20 05:53 Labs: Abnormal Lab Results - Last 24 Hours (Table) 10/14/20 10/14/20 10/14/20 Range/Units 05:53 05:53 05:53 WBC 10.9 H (3.8-10.6) k/uL RBC 3.42 L (4.30-5.90) m/uL Hgb 11.0 L (13.0-17.5) gm/dL Hct 35.0 L (39.0-53.0) % MCV 102.4 H (80.0-100.0) fL Neutrophils # 9.2 H (1.3-7.7) k/uL Lymphocytes # 0.7 L (1.0-4.8) k/uL PT 15.0 H (9.0-12.0) sec INR 1.5 H (<1.2) BUN 29 H (9-20) mg/dL Creatinine 2.71 H (0.66-1.25) mg/dL Glucose 129 H (74-99) mg/dL Microbiology - Last 24 Hours (Table) 10/11/20 21:35 Blood Culture - Preliminary Blood No Growth after 48 hours
== END 2020-10-14 18:40 | disposition home or self-care (01) | DRG 871 ==
LOC: EC 18:01 → 6NMEDSUR 20:25 → OBSVTOIN 10-12 23:35
PROVIDERS: ADMIT Hospitalist; ATTEND Hospitalist
PROC: 5A1D70Z Performance of Urinary Filtration, Intermittent, Less than 6 Hours Per Day (ICD-10-PCS; principal; 2020-10-12)
PROC: 4B02XTZ Measurement of Cardiac Defibrillator, External Approach (ICD-10-PCS; 2020-10-12)
DX: A41.9 Sepsis, unspecified organism (principal); N18.6 End stage renal disease; Z68.41 Body mass index [BMI] 40.0-44.9, adult; E87.2 Acidosis; I13.2 Hypertensive heart and chronic kidney disease with heart failure and with stage 5 chronic kidney disease, or end stage renal disease; I47.2 Ventricular tachycardia; I50.22 Chronic systolic (congestive) heart failure; D63.1 Anemia in chronic kidney disease; E66.9 Obesity, unspecified; E78.5 Hyperlipidemia, unspecified; E83.42 Hypomagnesemia; F17.290 Nicotine dependence, other tobacco product, uncomplicated; I25.10 Atherosclerotic heart disease of native coronary artery without angina pectoris; I25.2 Old myocardial infarction; I25.5 Ischemic cardiomyopathy; I34.0 Nonrheumatic mitral (valve) insufficiency; I48.0 Paroxysmal atrial fibrillation; I73.9 Peripheral vascular disease, unspecified; K21.9 Gastro-esophageal reflux disease without esophagitis; K59.00 Constipation, unspecified; K80.20 Calculus of gallbladder without cholecystitis without obstruction; E83.9 Disorder of mineral metabolism, unspecified; G62.9 Polyneuropathy, unspecified; H40.9 Unspecified glaucoma; Z20.822 Contact with and (suspected) exposure to COVID-19; Z86.79 Personal history of other diseases of the circulatory system; Z79.82 Long term (current) use of aspirin; Z79.899 Other long term (current) drug therapy; Z80.0 Family history of malignant neoplasm of digestive organs; Z95.1 Presence of aortocoronary bypass graft; Z98.42 Cataract extraction status, left eye; Z98.41 Cataract extraction status, right eye; Z96.1 Presence of intraocular lens; Z45.02 Encounter for adjustment and management of automatic implantable cardiac defibrillator; M19.90 Unspecified osteoarthritis, unspecified site; R33.9 Retention of urine, unspecified; I49.3 Ventricular premature depolarization; R79.89 Other specified abnormal findings of blood chemistry
CPT/HCPCS: 36415; 70450; 71046; 74176; 76705; 80048; 80053; 81001; 82150; 82550; 83605; 83690; 83735; 84100; 84439; 84443; 84481; 84484; 85025; 85027; 85610; 85730; 87040; 87636; 90935; 93005; 93306; 96360; 99285